=== PATIENT | male | born 1950 | race Caucasian/White ===

== ENCOUNTER 2023-11-07 19:22 | Inpatient (IN) | payer OTHER, SELFPAY ==
[2023-11-07] VITALS (13 sets, daily range): BP systolic 98–133; BP diastolic 66–88; PULSE 111–133
[2023-11-07 13:32] LABS: % Basophils 0.2 % (0-2); % Immature Granulocytes 0.4 % (0-0.5); % Lymphocytes 21.1 % (20.5-51.1); % Monocytes 6.4 % (1.7-9.3); % Neutrophils 71.9 % (42.2-75.2); Absolute Lymphocytes 2.2 10^3/uL (1.2-3.4); Absolute Monocytes 0.7 10^3/uL (0.1-0.6); Absolute Neutrophils 7.6 10^3/uL (1.4-6.5); Hematocrit 26.6 % (39.0-52.0); Hemoglobin 9.4 g/dL (13.0-18.0); Mean Corp Hgb Conc. 35.3 g/dL (33.0-37.0); Mean Corpuscular Hgb 33.1 pg (27.0-31.0); Mean Corpuscular Volume 93.7 fL (80.0-94.0); Mean Platelet Volume 11.5 fL (7.4-10.4); Nucleated Red Blood Cells % 0 % (-); Platelet Count 160 10^3/uL (130-400); Red Blood Cell Count 2.84 10^6/uL (4.70-6.10); Red Cell Dist. Width 12.4 % (11.5-14.5); White Blood Cell Count 10.6 10^3/uL (4.8-10.8)
[2023-11-07 13:46] LABS: ALT (SGPT) 19 U/L (0-50); AST (SGOT) 20 U/L (17-59); Albumin 3.7 g/dl (3.5-5.0); Alkaline Phosphatase 65 U/L (38-126); Blood Urea Nitrogen 48 mg/dl (9-20); Calcium 8.8 mg/dl (8.4-10.2); Carbon Dioxide 20 mmol/L (22-30); Chloride 106 mmol/L (98-107); Estimated Creatinine Clearance 82 ml/min; Glucose 134 mg/dl (70-99); Potassium 4.2 mmol/L (3.5-5.1); Sodium 138 mmol/L (135-145); Total Bilirubin 0.5 mg/dl (0.2-1.3); Total Protein 6.1 g/dl (6.3-8.2); eGFR > 60.00
[2023-11-07 13:55] LABS: Troponin I < 0.012 ng/ml
--- NOTE | 2023-11-07 16:12 | ED.GENMED ---
History of Present Illness
General
Chief Complaint: Fainting/Passed Out
Source: patient, spouse and family (Sister)
Exam Limitations: none
Time Seen by Provider: 11/07/23 13:20
Nursing documentation reviewed up to this point in time: agreed with
Travel History
Have you had any contact with someone who has COVID-19?: No
Do you have any symptoms of coronavirus? Fever > 100 degrees, chills, cough, shortness of breath, sore throat, loss of taste or smell, muscle aches, or headache?: No
History of Present Illness
History of Present Illness:
73-year-old male with a past medical history of CAD, hypertension who presents to the emergency department with his family for evaluation after syncopal event. Patient says that he got up around 2:30 AM to go to the bathroom. He says that he
finished on the toilet and stood up to walk back and passed out. He says that he hit his head and had a laceration on the scalp. He says that he was able to get back up on his own and walk back to bed and went back to sleep. His woke up and
noted that there was blood on the floor and was intermittently waking patient all night to ensure that he was okay. Brought him to the emergency room for assessment this morning. Patient admits that he has been feeling some increased shortness of
breath over the past few days. He denies any chest pain. He denies any palpitations. He denies any headache. Denies any abdominal or flank pain. No recent nausea or vomiting. He denies any other complaints. He is on aspirin and Plavix.
Unsure of last tetanus.
Past History
Past History
ED Past Medical History: CAD and HTN
ED Past Surgical History: Other (Stents)
Social History
Tobacco: Smoker
Alcohol: None
Personal:
Living: with family
Review of Systems
Review of Systems
All Other Systems: ROS reviewed and negative except as documented in HPI and ROS
Constitutional: Denies fever or chills
EENT: Denies sore throat or runny nose
Respiratory: Reports trouble breathing; Denies cough
Cardiac: Reports syncope; Denies chest pain or palpitations
ABD/GI: Denies abdominal pain, nausea, vomiting, bloody stools or black stools
: Denies flank pain
Musculoskeletal: Denies neck pain or back pain
Skin: Reports other (Laceration)
Neurological: Denies dizzy, headache, weakness or numbness
Phy Exam
Physical Exam
Physical Exam:
General: Awake, alert, oriented x3; no acute distress
Head: Normocephalic, 1 cm vertical laceration on the occipital scalp
Eyes: Conjunctiva normal, EOMI, pupils equal round reactive to light bilaterally
Throat: Airway intact, handling secretions
Neck: Trachea midline, supple without meningismus
Lungs: Clear to auscultation bilaterally, no wheezing, rales, rhonchi
Heart: Tachycardia with regular rhythm, no murmurs, gallops, or rubs
Abd: Soft, non distended, nontender
Rectal: Dark brown stool Hemoccult positive
Neuro: Cranial nerves grossly intact, speech fluid, no gross motor or sensory deficits
Extremities: Atraumatic, warm well-perfused
Scores
Heart Failure Risk
Heart Failure Risk Score: Not Applicable
Heart Score for Chest Pain Patients
STEMI patient?: Not applicable
Withdrawal Assessment of Alcohol
Withdrawal Assessment Completed?: Not applicable
Course
Orders/Labs/Results
Orders:
Orders
11/07/23 12:57
EKG [Electrocardiogram (*1)] Urgent
Reason for Study: Chest Pain
EKG- Treatment ONCE
11/07/23 13:10
Cardiac Monitoring- Treatment ONCE
IV Insert/Care/Rem.- Treatment PRN
11/07/23 13:12
Complete Blood Count/With Diff Urgent
Comprehensive Metabolic Panel Urgent
Ferritin Routine
Comment: ADD ON
Folate Routine
Comment: ADD ON
Iron Urgent
Comment: ADD ON
Total Iron Binding Urgent
Comment: ADD ON
Troponin I Urgent
Vitamin B12 Routine
Comment: ADD ON
11/07/23 13:17
CT Cervical Spine W/o Iv Contr Urgent
Comment: neck pain PRIOR to injury
Reason For Exam: syncope, head strike, on plavix, lac present;
CT Head W/o Iv Contrast Urgent
Comment:
Reason For Exam: syncope, head strike, on plavix, lac present
11/07/23 16:07
0.9% Sodium Chloride 500 ml [Nss] 500 ml IV BOLUS
Pantoprazole [Protonix IV] 80 mg IV NOW STA
CR Chest Portable - 1 View Urgent
Comment:
Reason For Exam: sob
Reason Study Needs to be Portable: Unable to Transport
11/07/23 16:09
Tetanus/Diphth/Acelpertussis [Adacel] 0.5 ml IM .ONCE ONE
11/07/23 17:02
Add On- LAB Routine
Tests Added?: iron, ferritin, tibc, folate, vit b12
11/07/23 17:06
Admit/Transfer Patient As Directed
Co-Sign Provider:
Level of Care: Inpatient admission
Assign to:: Telemetry
Physician / Group: Tammy
Diagnosis: GI Bleed
Reason for Telemetry: Syncope
Date to Stop Telemetry: 11/09/23
Time to Stop Telemetry: 11:00
Reason for Hospitalization: GI consult; PPI
Expected length of stay greater than two midnights?: Yes
ELOS- Estimated Length of Stay in days: 3
I certify the patient meets the requirements for IP care: Yes
11/07/23 17:07
Code Status As Directed
Resuscitation Status: Full Code
11/07/23 19:30
H&H Q8H
11/08/23 03:30
H&H Q8H
11/08/23 11:30
H&H Q8H
11/09/23 11:00
DC Protocol for Telemetry ONCE
Abnormal Lab Results
11/07/23
13:12
RBC 2.84 L 10^6/uL
(4.70-6.10)
Hgb 9.4 L g/dL
(13.0-18.0)
Hct 26.6 L %
(39.0-52.0)
MCH 33.1 H pg
(27.0-31.0)
MPV 11.5 H fL
(7.4-10.4)
Absolute Neuts (auto) 7.6 H 10^3/uL
(1.4-6.5)
Absolute Monos (auto) 0.7 H 10^3/uL
(0.1-0.6)
Carbon Dioxide 20 L mmol/L
(22-30)
BUN 48 H mg/dl
(9-20)
Glucose 134 H mg/dl
(70-99)
Total Protein 6.1 L g/dl
(6.3-8.2)
11/07/23 13:12
Vital Signs
Initial and Last Documented VS:
Initial Vital Signs
Temp Pulse Resp Pulse Ox
36.8 C 107 22 99
11/07/23 12:59 11/07/23 12:59 11/07/23 12:59 11/07/23 12:59
Last Documented Vital Signs
Temp Pulse Resp BP Pulse Ox
36.8 C 106 23 120/69 98
11/07/23 12:59 11/07/23 17:30 11/07/23 17:30 11/07/23 17:00 11/07/23 17:30
Procedures
Laceration Closure
Scalp:
Status of Wound: clean
Size of Wound in cm: 1
Description of Wound Edges: sharp
Preparation: cleaned with saline
Revision/Debridement: routine- no revision
Type of Closure: single layer closure
Skin Closure Material: skin ray
Number of sutures: 2
MDM/Problems Addressed
Differential Diagnosis Includes:
Dehydration, vasovagal episode, orthostatic hypotension, electrolyte derangement, cardiac dysrhythmia, anemia, somewhat less likely PE or ACS
MDM/Problems Addressed:
73-year-old male presents after syncopal episode this morning. Has been mildly short of breath over the past few days. He arrives to us tachycardic with otherwise normal vitals. He has a minor scalp laceration. Rest of physical exam as above.
Plan to place an IV check labs including a CBC and a CMP, troponin. Will check CT head and cervical spine. Will check a chest x-ray. Will check an EKG. Monitor closely reassess after the above.
Labs reviewed: CBC shows anemia with hemoglobin of 9.4�this is decreased from prior baseline of 12. Patient denies any black or bloody stools but we did do a Hemoccult which was positive. Certainly this could be contributing to his syncope and his
dyspnea. CMP shows elevated BUN in keeping with suspected diagnosis of an upper GI bleed. His troponin fortunately is negative. CT head and cervical spine negative. Chest x-ray no acute disease. EKG shows sinus rhythm no ischemia, no AV block,
no long QT, no Brugada, no delta wave. Will treat with IV Protonix. Will admit for continued monitoring, serial hemoglobins. Discussed with hospitalist for admission.
Chronic conditions affecting care:
CAD status post stents requiring dual antiplatelet therapy which complicates GI bleed
Acute Exacerbation and/or Progression of Chronic Illness:
Acute on chronic anemia
*Radiology
Radiology exam reviewed: preliminary read by ED provider and radiology read reviewed
*Pulse Oximetry
Patient hypoxic: no
*EKG
Interpreted by ED Provider?: Yes
Heart Rate: 108
Rate: tachycardiac
Rhythm: sinus and sinus tachycardia
[place]: normal axis
Interval: normal interval
QRS Pattern: normal QRS
Ischemia: other (Lateral T wave abnormality is new compared to prior EKG in 2015)
*Critical Care Note
Total Time (30-74mins, 75-104mins- exclusive of procedures): Not Applicable
Data Reviewed
Review of Other/Old Records Reveals: Labs and Records
Source: patient, spouse and family
Further Testing Considered But Not Given:
Considered CTA to rule out PE but patient not having chest pain and normal pulse ox and with anemia with positive Hemoccult which I think more likely accounts for his dyspnea and syncope
Patient Management
Discussion with other providers: Hospitalist (Discussed with hospitalist)
Escalation/DeEscalation of care consider admission/obs:
Admission indicated
ED Attending Note
-
Portions of this chart may have been created with voice recognition software.� Occasional wrong word or��sound alike� substitutions may have occurred due to the inherent limitations of voice recognition software.
Discharge Plan
Departure
Patient Disposition: Admit
Date of Disposition: 11/07/23
Time of Disposition: 16:08
Admit to doctor: Tammy
Presentation/result/management discussed w/ accepting MD/DO: Hospitalist
Discharge Problem:
Syncope, Anemia, GI bleed, Laceration of scalp
Prescriptions:
No Action
atenolol 25 MG tablet
25 mg PO HS
simvastatin 80 MG tablet
80 mg PO HS
clopidogrel 75 mg tablet
75 mg PO HS
Maricel Apple Cider Vinegar
1 tab PO DAILY
aspirin 81 MG tablet,chewable
81 mg PO HS
Referrals:
Fish Michael PA-C [Family Provider] -
Interventions
Interventions:
*Risk Screen - Suicide Last Done: 11/07/23 13:10
*General Assessment Last Done: 11/07/23 16:43
*Neglect/Abuse Screening Last Done: 11/07/23 13:10
ED- Fall Risk Assessment Last Done: 11/07/23 16:43
*ED COVID-19 Vaccine History Last Done: 11/07/23 16:43
ED- Cardiac Assessment Last Done: 11/07/23 14:26
ED- Neurological Assessment Last Done: 11/07/23 14:26
[2023-11-07] MEDS: NSS 500 IV (16:27)
[2023-11-07] MEDS: PROTONIX IV 80 MG IV (16:29)
[2023-11-07] MEDS: ADACEL 0.5 ML IM (16:38)
--- NOTE | 2023-11-07 17:35 | HPS.HSE ---
Addendum entered and electronically signed by Orlando Munoz MD 11/07/23 19:31:
I independently saw and examined the patient on November 07, 2023.
The ROSALIE's note was reviewed and I agree with the note.
Comment:
73 y/o male with past medical history of CAD s/p multiples stent on Plavix and aspirin, upper GI bleed in 2013, hypertension, and hyperlipidemia who presented after passing out earlier today. Patient says he was getting up from the toilet after a
bowel movement when he passed out. He remembers waking up on the floor with blood around him - with the blood being from his head injury - as per him. He did have some chest heaviness afterwards, but denied prior history of syncope. He denies
dizziness, palpitations or shortness of breath.
Work-up in ED revealed Hgb of 9.4 g/dL. He has a history of upper GI bleed in 2013 and says he has not had any episodes of GI bleeding since then. He says he sees a PCP annually, had blood work done recently which he says was normal and denies known
anemia. He denies colonoscopy or endoscopy since 2013. Patient says he started [employer] weight loss program 3 months ago and reported 25 lb weight loss over the past 4 months which he attributes to the new diet. He admits to taking 1 tab of
Naproxen approximately 3 times per week for neck pain. He denies changes in bowel patterns, bloody or dark stool, abdominal pain, fever, chills, and night sweats.
Vital Signs noted
Physical Exam
General:�Not in acute distress
HEENT:�Normocephalic and Moist mucous membranes
Respiratory:�Clear and Non Labored Respirations
Cardiac:�S1/S2, Regular Rhythm and Tachycardia (Slightly)
GI:�Soft and Non Tender. Positive bowel sounds.
Rectal:�Hem Positive (Per ED)
Musculoskeletal:�No Cyanosis and No Edema
Skin:�Warm and Dry
Neuro:�Awake, Alert, Oriented and Nonfocal/grossly intact
Assessment/Plan
Syncope
-EKG with some ST and T wave changes -- patient currently chest pain free
-Check echocardiogram
-Check troponins
-Will consider cardiology consultation
GI Bleed, likely upper in nature
-Patient with prior history of GI Bleed in 2014 secondary to NSAID use
-Consulted GI, recommendations appreciated
-Okay to continue Aspirin for now. Hold Plavix for now.
-Continue Protonix
Anemia, suspect acute blood loss in setting of GI bleed, however no recent Hgb available for comparison
-Attempt to obtain recent blood work from PCP
-Check iron studies
-Trend H&H
-Blood consent obtained and scanned into chart should Hgb drop below 8
-Monitor patient clinically for any melena or hematochezia
Syncope, possibly related to hypovolemia vs vasovagal
-Continue IVFs
-Check monitor on Telemetry
-Monitor orthostatic VS
Coronary Artery Disease s/p Multiple Stents (Last stent over 10 years ago)
-Continue Aspirin
-Will plan to resume Plavix after GI clearance
-Patient should follow-up with his epic ambulatory analyst Dr. Barry at [facility] in [place]
Essential Hypertension
-Continue atenolol with hold parameters
Hyperlipidemia
-Continue atorvastatin in place of patient's usual simvastatin
DVT Prophylaxis: SCDs (no chemical DVT prophylaxis due to suspected GI bleed)
Code Status: Full Code
Original Note:
Family Physician
-
Family Physician: RAKESH MARADIAGA PA-C
Chief Complaint
-
Syncope
History of Present Illness
Patient is a 73 y/o male with PMH of CAD s/p multiples stent on Plavix and aspirin, hypertension, and hyperlipidemia who presented to the ED today following a syncopal episode. Patient says he was getting up from the toilet after a bowel movement
when he passed out. He remembers waking up on the floor with blood around him. He denies prior history of syncope. He denies dizziness, chest pain, palpitations or shortness of breath.
Work-up in ED revealed Hgb of 9.4 g/dL. He has a history of upper GI bleed in 2013 and says he has not had any episodes of GI bleeding since then. He says he sees a PCP annually, had blood work done recently which he says was normal and denies known
anemia. He denies colonoscopy or endoscopy since 2013. Patient says he started [employer] weight loss program 3 months ago. He reports 25 lb weight loss over the past 4 months which he attributes to the new diet. He admits to taking 1 tab of
Naproxen approximately 3 times per week for neck pain. He denies changes in bowel patterns, bloody or dark stool, abdominal pain, fever, chills, and night sweats.
Medical History
Past Medical History
Past Medical History: Reports Other
Additional Past Medical History:
Coronary Artery Disease s/p Multiple Stents
Non-Sustained Supraventricular Tachycardia
Essential Hypertension
Hyperlipidemia
Nephrolithiasis
Past Surgical History: Reports Other
Additional Past Surgical History:
Cardiac Stents
Appendectomy
Hernia Repair
Social History
Tobacco: Non-smoker
Alcohol: Occasional (Patient notes rarely)
Family History
Family History: Not pertinent
Allergies / Home Medications
Allergies reflects when Allergies were last updated in [facility].
Home Medications with original date entered in [facility]
Allergy/Medication List:
Allergies
Allergy/AdvReac Type Severity Reaction Status Date / Time
Iodinated Contrast Media Allergy Hives Verified 01/30/15 11:29
[IV Dye, Iodine Containing]
Home Medications
atenolol 25 mg tablet 25 mg PO HS 01/30/15
simvastatin 80 mg tablet 80 mg PO HS 01/30/15
Maricel Apple Cider Vinegar 1 tab PO DAILY 11/07/23
aspirin 81 mg chewable tablet 81 mg PO HS 11/07/23
clopidogrel 75 mg tablet 75 mg PO HS 11/07/23
Review of Systems
-
A 12 point ROS was completed and negative except as noted: Yes
Constitutional: Reports Weight Loss (20lbs over past few months related to recent diet changes)
Respiratory: Denies Cough or Trouble Breathing
Cardiac: Denies Chest Pain or Palpitations
Physical Exam
Vital Signs
Vital Signs
Temp Pulse Resp BP Pulse Ox
98.2 F 105 26 122/72 99
11/07/23 12:59 11/07/23 16:45 11/07/23 16:45 11/07/23 15:00 11/07/23 16:45
Physical Exam
General: No Apparent Distress and Comfortable
HEENT: NormoCephalic, Anicteric and Moist mucous membranes
Respiratory: Clear and Non Labored Respirations
Cardiac: S1/S2, Regular Rhythm and Tachycardia (Slightly)
GI: Soft and Non Tender
Rectal: Hem Positive (Per ED)
Musculoskeletal: No Clubbing, No Cyanosis and No Edema
Skin: Warm and Dry
Neuro: Awake, Alert, Oriented and Nonfocal/grossly intact
Laboratory Results
-
11/07/23 13:12
Laboratory Results
Total Bilirubin 0.5 mg/dl (0.2-1.3) 11/07/23 13:12
AST 20 U/L (17-59) 11/07/23 13:12
ALT 19 U/L (0-50) 11/07/23 13:12
Alkaline Phosphatase 65 U/L (38-126) 11/07/23 13:12
Troponin I < 0.012 ng/ml 11/07/23 13:12
Data Reviewed
-
Lab Data: Labs Reviewed by me
Old Records: Requested and Reviewed
Impression/Plan
-
GI Bleed, likely upper in nature
-Patient with prior history of GI Bleed in 2014 secondary to NSAID use
-Consult GI
-Continue Protonix
Anemia, suspect acute blood loss in setting of GI bleed, however no recent Hgb available for comparison
-Attempt to obtain recent blood work for PCP
-Check iron studies
-Trend H&H
-Blood consent obtained and scanned into chart should Hgb drop below 8
Syncope, possibly related to hypovolemia vs vasovagal
-Continue IVFs
-Check monitor on Telemetry
-Monitor orthostatic VS
Coronary Artery Disease s/p Multiple Stents (Last stent over 10 years ago)
-Hold Aspirin and Plavix
Essential Hypertension
-Continue atenolol with hold parameters
Hyperlipidemia
-Continue atorvastatin in place of patient's usual simvastatin
DVT proph: SCDs
Code Status: Full Code
[2023-11-07 17:57] LABS: Iron 96 ug/dl (49-181)
[2023-11-07 18:06] LABS: Percent Saturation 29 % (20-50); Total Iron Binding Capacity 321 ug/dl (261-462)
[2023-11-07 18:36] LABS: Ferritin 68.2 ng/ml (17.9-464.0)
[2023-11-07 19:07] LABS: Folate > 20.0 ng/ml (2.76-20); Vitamin B12 288 pg/ml (239-931)
[2023-11-07 19:14] LABS: Hematocrit 23.8 % (39.0-52.0); Hemoglobin 8.4 g/dL (13.0-18.0)
[2023-11-07] MEDS: TYLENOL 1000 MG PO (22:45)
[2023-11-07] MEDS: D5/0.45%NACL 1000 IV (22:53)
[2023-11-07 23:30] LABS: Troponin I 0.087 ng/ml
[2023-11-07] MEDS: LOW STRENGTH ASPIRIN 81 MG PO (23:38)
[2023-11-08] VITALS (21 sets, daily range): BP systolic 98–157; BP diastolic 55–72; BMI 38.8
[2023-11-08 02:13] LABS: Troponin I 0.139 ng/ml
[2023-11-08 06:06] LABS: Hemoglobin 7.3 g/dL (13.0-18.0); Mean Corp Hgb Conc. 34.8 g/dL (33.0-37.0); Mean Corpuscular Hgb 32.7 pg (27.0-31.0); Mean Corpuscular Volume 94.2 fL (80.0-94.0); Mean Platelet Volume 11.5 fL (7.4-10.4); Platelet Count 125 10^3/uL (130-400); Red Blood Cell Count 2.23 10^6/uL (4.70-6.10); Red Cell Dist. Width 12.9 % (11.5-14.5)
[2023-11-08 06:29] LABS: Blood Urea Nitrogen 33 mg/dl (9-20); Calcium 8.1 mg/dl (8.4-10.2); Carbon Dioxide 23 mmol/L (22-30); Chloride 112 mmol/L (98-107); Estimated Creatinine Clearance 82 ml/min; Glucose 126 mg/dl (70-99); Potassium 3.9 mmol/L (3.5-5.1); Sodium 136 mmol/L (135-145); eGFR > 60.00
[2023-11-08] MEDS: PROTONIX IV 40 MG IV (08:45)
[2023-11-08] MEDS: NSS (PRESERVATIVE FREE) 10 ML IV (08:45)
[2023-11-08] MEDS: D5/0.45%NACL IV (10:17)
--- NOTE | 2023-11-08 10:20 | CON.GI ---
Addendum entered and electronically signed by Lyndsey Lockwood DO 11/08/23 14:20:
Patient seen and examined independently of RAMESH. I agree with her note with my additions below
Jorge is a 73-year-old male with CAD status post multiple stents on 325 aspirin and Plavix for at least over a decade with most recent stent over a decade ago who comes in after syncopized and hitting his head after moving his bowels which were
brown. He comes in with a hemoglobin in the nines which drifted down to 7.3. He has not had any overt bleeding. Stools are brown and heme positive. He denies any overt bleeding at home other than the head injury. From GI perspective his
symptoms are vague but he sounds like solid food dysphagia, he has no heartburn, no PPI use. Takes naproxen couple times a week. Denies any heartburn, nausea, vomiting, abdominal pain and his bowels are regular. He states he had labs with his PCP
a month or so ago and was never told he was anemic. History of transfusion decades ago when he said he had hematemesis. No known endoscopy done. He has never had a colonoscopy. He has not followed in the [facility] system and we have no baseline
labs.
On exam he is comfortable, abdomen soft. Denies chest pain or shortness of breath. No significant weight loss or appetite change.
Not on PPI at home
# Anemia -add on iron studies, patient is hemodynamically stable with no overt bleeding
-- Stools are brown
--Getting 1 unit of blood in the setting of his cardiac disease
--Patient on full dose aspirin and Plavix
--Start PPI
--Plan for EGD tomorrow as long as he is optimized from a cardiovascular standpoint
--No prior EGD or colon
Original Note:
Consultation
-
Date/Time Consultation Requested: 11/07/230
Date/Time Consultation Performed: 11/08/23 1042
Requesting Provider: SILVIANO Graf
Performing Provider: Dr. Lockwood/RAMESH Abbasi
Reason for Consultation: OB positive stool, anemia, syncope
Medical History
Chief Complaint / HPI
Chief Complaint: syncope
History of Present Illness:
73-year-old male with past medical history of coronary artery disease status post 5 stents on aspirin and Plavix with history of nonbleeding erosive gastropathy back in 2013, neck pain with recent Naprosyn use, weight loss secondary to dietary
changes who presents to the emergency room after an episode of syncope. The patient states that early Sunday morning approximately 3 AM he felt the need to urinate so he got up out of his bed started walking to the bathroom and he states the
next thing he recalls is he woke up on the floor. He states that he obviously hit his head as he had a laceration with blood. He states he cleaned this up and went back to his bed and went back to sleep. He states that his woke him up around
7 AM as she noticed the blood. And at that point she urged him to go to the emergency room. When he arrived here they noticed that his hemoglobin was 9.4. His stool was brown but occult blood positive. His hemoglobin drifted down to 8.4 and then
7.3. He has not had any bowel movement since arrival. His vital signs have remained stable. He did state that yesterday prior to arrival he did have some substernal chest pressure, he denied any diaphoresis, shortness of breath or radiation of
his chest discomfort to any other part of his body including jaw or arms. He is on aspirin and Plavix daily. His last use of aspirin and Plavix was Sunday evening. He initially denied any use of NSAIDs to me however review of his chart stated
that he was using naproxen approximately 3 times a week for neck discomfort. The patient denies any fevers, chills, nausea, vomiting, melena, hematochezia, dysphagia or odynophagia. He denies any early satiety. His appetite has been good. He
denies any gastroesophageal reflux disease.
Past Medical History
Past Medical History: Arrhythmias (SVT), CAD, HTN, Hypercholesterolemia and Other (kidney stones)
Past Surgical History: Appendectomy, Cardiac (Cardic stents) and Other (hernia repair)
Social History
Tobacco: Non-Smoker
Alcohol: None
Drug: None
Personal:
Living: With Family
Employment: Retired
Family History
Family History: Other (No fam hx of GI malignancy or IBD)
Allergies / Home Medications
Allergy/AdvReac Type Severity Reaction Status Date / Time
Iodinated Contrast Media Allergy Hives Verified 01/30/15 11:29
[IV Dye, Iodine Containing]
Medication Instructions Recorded
atenolol 25 mg tablet 25 mg PO HS 01/30/15
simvastatin 80 mg tablet 80 mg PO HS 01/30/15
Maricel Apple Cider Vinegar 1 tab PO DAILY 11/07/23
aspirin 81 mg chewable tablet 81 mg PO HS 11/07/23
clopidogrel 75 mg tablet 75 mg PO HS 11/07/23
Review of Systems
-
All other systems: A 12 pt ROS was Negative except as stated above in HPI
Vital Signs
Temp Pulse Resp BP Pulse Ox
98.4 F 86 16 115/57 100
11/08/23 10:16 11/08/23 10:00 11/08/23 10:16 11/08/23 09:00 11/08/23 03:00
Physical Exam
Exam
General: No Apparent Distress
HEENT: Anicteric
Respiratory: Clear
Cardiac: Regular Rhythm
GI: Soft, Non Tender, Non Distended and Normal Bowel Sounds
Rectal: Hem Positive (Brown/OB pos per ER)
Musculoskeletal: No Edema
Skin: Warm and Dry
Neuro: AO x 3
Psych: Calm
Results
WBC 6.0 10^3/uL (4.8-10.8) 11/08/23 05:23
Hgb 7.3 g/dL (13.0-18.0) L 11/08/23 05:23
Hct 21.0 % (39.0-52.0) L 11/08/23 05:23
MCV 94.2 fL (80.0-94.0) H 11/08/23 05:23
Plt Count 125 10^3/uL (130-400) L D 11/08/23 05:23
Absolute Neuts (auto) 7.6 10^3/uL (1.4-6.5) H 11/07/23 13:12
Sodium 136 mmol/L (135-145) 11/08/23 05:23
Potassium 3.9 mmol/L (3.5-5.1) 11/08/23 05:23
Chloride 112 mmol/L (98-107) H 11/08/23 05:23
Carbon Dioxide 23 mmol/L (22-30) 11/08/23 05:23
BUN 33 mg/dl (9-20) H 11/08/23 05:23
Creatinine 0.8 mg/dL (0.7-1.3) 11/08/23 05:23
Calcium 8.1 mg/dl (8.4-10.2) L 11/08/23 05:23
Total Bilirubin 0.5 mg/dl (0.2-1.3) 11/07/23 13:12
AST 20 U/L (17-59) 11/07/23 13:12
ALT 19 U/L (0-50) 11/07/23 13:12
Alkaline Phosphatase 65 U/L (38-126) 11/07/23 13:12
Diagnostic Image Results:
CT Cspine:
IMPRESSION:
No acute abnormalities
Multilevel cervical degenerative disc disease with associated reversal of the normal lordotic curvature of the cervical spine as detailed above
Electronically signed by Sumeet Hannah MD 11/07/2023 2:[address] Brain:
IMPRESSION:
There are no acute intracranial abnormalities.
There is mild diffuse cortical atrophy with mild nonspecific white matter changes as described above.
Electronically signed by Sumeet Hannah MD 11/07/2023 2:26 PM
CXR:
IMPRESSION:
No acute cardiopulmonary process.
Electronically signed by Tenzin Duong 11/07/2023 4:23 PM
Prior GI Procedures:
EGD: 03/20/14 ([facility]) � - Nodular mucosa in the esophagus. Biopsied.
�� � � � � � � � � � - Non-bleeding erosive gastropathy. Biopsied.
�� � � � � � � � � � - Normal examined duodenum.
Colonoscopy: '15 years ago, normal'
Assessment / Plan
-
73-year-old male with past medical history of coronary artery disease status post 5 stents on aspirin and Plavix with history of nonbleeding erosive gastropathy back in 2013, neck pain with recent Naprosyn use, weight loss secondary to dietary
changes who presents to the emergency room after an episode of syncope. Found to have anemia and stool positive for occult blood, BUN that is elevated out of proportion with recent Naprosyn use concerning for upper GI bleed. WBC is 6.0, hemoglobin
is 7.3 down from 9.4 on arrival, platelets 125 down from 160, MCV 94.2, MCH 32.7, no coags, sodium 136, potassium 3.9, chloride 112, BUN 33 down from 48 on arrival, creatinine 0.8 same as on arrival, normal LFTs, iron 96, TIBC 321, percent
saturation 29, ferritin 68.2, B12 288, folate greater than 20.0 on arrival troponin was less than 0.012 this has been trending up, 0.087, 0.139, 0.210. EKG performed showing ST and T wave abnormality. Discussed with medicine attending, given
uptrending of troponin, patient's chest discomfort prior to arrival and EKG would prefer patient have cardiac evaluation. Patient is currently chest pain-free and without any signs of distress. Patient also had unwitnessed fall and without any BM
since arrival with 2 gram drop in Hgb since arrival. Discussed with IM attending about abd imaging to r/o other bleeding in addition.
Impression:
Syncope
Anemia
OB positive stool
Elevated troponin with ST changes on EKG
CAD on ASA/Plavix (last dose Plavix 11/06/23)
Hx GIB 2013 (non erosive gastropathy)
Plan:
-Recommend Cardiology consultation (discussed with IM and they are consulting)
-2 large bore IV lines
-Continue Pantoprazole, would change to PPI gtt for now until able to have EGD
-Trend Hgb
-Would keep Hgb >8 given cardiac sx, trop and card hx
-Discussed with IM about CT Abd/Pelvis non con to r/o RP bleed, less likely however given unwitnessed fall at home
-EGD tomorrow if ok with Cardiology unless patient shows signs of active GI bleeding or instability
-Low normal B12, would recommend supplementation
-Further recommendations to follow
-
-
Thank you for consultation and allowing me to participate in the patient's care. Please call the new vehicle sales consultant GI physician during the after hours with any questions or concerns.
--- NOTE | 2023-11-08 10:40 | W.PN.HOSP.TC ---
Today's Communication/Plan
-
EGD tomorrow
Continue to hold Plavix
Assessment / Plan
Assessment / Plan
Physical Exam
General:�Not in acute distress
HEENT:�Normocephalic and Moist mucous membranes
Respiratory:�Clear and Non Labored Respirations
Cardiac:�S1/S2, Regular Rhythm
GI:�Soft and Non Tender. Positive bowel sounds.
Musculoskeletal:�No Cyanosis and No Edema
Skin:�Warm and Dry
Neuro:�Awake, Alert, Oriented and Nonfocal/grossly intact
Assessment/Plan
Syncope
Chest Tightness on Exertion
Elevated troponins - suspected secondary to demand ischemia
-EKG with some ST and T wave changes
-Echocardiogram noted
-Troponins rising significantly
-Consulted cardiology, recommendations appreciated
GI Bleed, likely upper in nature
-Patient with prior history of GI Bleed in 2013 secondary to NSAID use
-Consulted GI, recommendations appreciated
-Okay to continue Aspirin for now. Hold Plavix for now.
-Continue Protonix
-EGD planned for tomorrow
Anemia, suspect acute blood loss in setting of GI bleed, however no recent Hgb available for comparison
-Attempt to obtain recent blood work from PCP
-Iron studies --> not iron deficient
-Trend H&H
-Blood consent obtained and scanned into chart should Hgb drop below 8
-Monitor patient clinically for any melena or hematochezia
-No retroperitoneal hemorrhage on CT scan
-Ordered 1 unit of PRBC given patient's heart disease ad Hgb in the 7's on November 08, 2023 AM
-Transfuse to maintain Hgb 8 or above given patient's heart disease
Syncope, possibly related to hypovolemia vs vasovagal
-Continue IVFs
-Check monitor on Telemetry
-Monitor orthostatic VS
Coronary Artery Disease s/p Multiple Stents (Last stent over 10 years ago)
-Continue Aspirin
-Will plan to resume Plavix after GI clearance/EGD
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 Barry at [facility] in [place]
Essential Hypertension
-Continue atenolol with hold parameters
Hyperlipidemia
-Continue atorvastatin in place of patient's usual simvastatin
DVT Prophylaxis: SCDs (no chemical DVT prophylaxis due to suspected GI bleed)
Code Status: Full Code
Anticipated Discharge: 24 - 48 hours
Subjective/Interval History
-
Date of Service: November 08, 2023
Patient was seen and examined. He reported chest tightness with any kind of exertion, he confirmed that he had 5 stents in the past about 10-15 years ago, and has been kept on Aspirin and Plavix by his carpet installer.
Objective Data
-
Labs:
Laboratory Results
11/08/23 11/08/23 11/08/23
03:30 05:23 11:30
WBC 6.0
Hgb Cancelled 7.3 L Pending
Hct Cancelled 21.0 L Pending
Plt Count 125 L D
Sodium 136
Potassium 3.9
Chloride 112 H
Carbon Dioxide 23
BUN 33 H
Creatinine 0.8
Glucose 126 H
Calcium 8.1 L
11/08/23
19:15
WBC Pending
Hgb Pending
Hct Pending
Plt Count Pending
Sodium
Potassium
Chloride
Carbon Dioxide
BUN
Creatinine
Glucose
Calcium
Vital Signs:
Vital Signs
Temp Pulse Resp BP Pulse Ox
98.4 F 82 18 115/57 100
11/08/23 10:16 11/08/23 10:30 11/08/23 10:30 11/08/23 09:00 11/08/23 03:00
I&O
11/07/23 11/08/23 11/09/23
06:59 06:59 06:59
Intake Total 800 / 800
Output Total 400 / 400 300 / 300
Balance 400 / 400 -300 / -300
[2023-11-08] MEDS: PROTONIX 100 IV ×2 (11:46→21:26)
[2023-11-08 11:48] LABS: Hematocrit 23.4 % (39.0-52.0); Hemoglobin 8.1 g/dL (13.0-18.0)
--- NOTE | 2023-11-08 12:10 | CON.CAR ---
Addendum entered and electronically signed by Donavon Irby MD 11/08/23 14:19:
I saw and examined the patient.
The CHILD WELFARE SPECIALIST's note was reviewed and I agree with the note.
Comment: 73 y/o male with CAD with multiple stents (none recent -15 years ago per patient- records requested), hx GIB, HTN, and dyslipidemia who is here for evaluation of syncope. He was found to be anemia with possible GI bleeding. He also has
elevated troponin with hx of CAD and stenting as above. This is likely demand ischemia in setting of GI bleed.
- Hgb goal ~10
- trend troponin
- OK for GI procedure if necessary
Original Note:
Consultation
Consultation Request
Date/Time Consultation Requested: 11/08/23 1034
Date/Time Consultation Performed: 11/08/23 1145
Requesting Provider: Dr. Munoz
Performing Provider: Carolyn CHANDLER for Dr. Irby
Reason for Consultation: abnormal trop, chest discomfort, EKG
Medical History
-
Chief Complaint: syncope
History of Present Illness:
73 y/o male with CAD with multiple stents (none recent -15 years ago per patient- records requested), hx GIB, HTN, and dyslipidemia who is here for evaluation of syncope. Briefly, since Sunday, he hasn't felt himself. He felt congested and has been
taking NyQuil at night. Yesterday, he felt dizzy when he woke up. Then, overnight, he sat down to have a BM, then stood up and passed out. He hit his head. His significant other looked in the bathroom later and saw blood from hitting his head and
brought him to the ER. Here he is seen to be anemic and have heme + stool. He is on PPI drip and PRBC's are ordered. GI evalauted and plans for egd tomorrow. We are consulted since he has chest tightness with exertion since this AM and abnormal trop
and EKG's. No CP at rest. He is in no distress at the time of my assessment. He follows with Dr. Barry and I have personally requested records. He is on DAPT as OP, but plavix held for bleed. He did have some nausea, but no abdominal pain.
Past Medical History
Past Medical History: CAD, HTN and Hypercholesterolemia
Social History
Tobacco: Non-Smoker
Alcohol: None
Family History
Family History: CAD (dad had OK)
Allergies / Home Medications
Allergy/AdvReac Type Severity Reaction Status Date / Time
Iodinated Contrast Media Allergy Hives Verified 01/30/15 11:29
[IV Dye, Iodine Containing]
Medication Instructions Recorded Confirmed Type
atenolol 25 mg tablet 25 mg PO HS Blood Pressure 01/30/15 11/07/23 History
simvastatin 80 mg tablet 80 mg PO HS High Cholesterol 01/30/15 11/07/23 History
Maricel Apple Cider Vinegar 1 tab PO DAILY Supplement 11/07/23 11/07/23 History
aspirin 81 mg chewable tablet 81 mg PO HS Blood Clot 11/07/23 11/07/23 History
Prevention/Tx
clopidogrel 75 mg tablet 75 mg PO HS Blood Clot 11/07/23 11/07/23 History
Prevention/Tx
Review of Systems
-
History Source: Patient
All other systems: Negative unless noted
Constitutional: Other (congestion)
Cardiac: Chest Pain and Syncope
Abdomen/GI: Nausea
Neurological: Dizzy
Physical Exam
Vital Signs
Temp Pulse Resp BP Pulse Ox
98.4 F 85 21 98/60 100
11/08/23 10:16 11/08/23 12:00 11/08/23 12:00 11/08/23 10:59 11/08/23 03:00
Lab Results
11/08/23 05:23
Troponin I 0.210 ng/ml H* D 11/08/23 05:23
Physical Exam
General: Well Developed, Well Nourished and No Apparent Distress
HEENT: Normocephalic and Anicteric
Respiratory: Clear and Non Labored Respirations
Cardiac: Regular Rhythm
Breast: Deferred by me
GI: Soft, Non Distended and Normal Bowel Sounds
Rectal: Deferred by Provider
Musculoskeletal: No Edema
Skin: Warm and Dry
Neuro: AO x 3
Psych: Calm
Impression / Plan
-
Syncope:
-likely related to GIB, BP's on low end, patient to get blood
-follow telemetry
Acute anemia, GIB:
-severe in that it led to syncope
-GI is consulted and plans for endoscopy tomorrow
-patient to get PRBC's, recommendation to keep hgb around 10 since patient with angina
Abnormal troponin:
-type II OK in setting of acute anemia
-would keep hgb around 10
-echo with normal LV function
-trend to peak
-PRBC's as above
-no CP at rest
CAD with hx stenting:
-on DAPT as OP, no recent stents
-ASA continued, plavix held
-records requested
-continue statin and BB
HTN:
-on low end in ER
-monitor
Data Reviewed
-
EKG: Tracing Personally Visualized and interpreted (SR 87 BPM, ST/T abnormalities)
Radiology: Report Reviewed by me (CXR: No acute cardiopulmonary process.)
CT Scan: Report Reviewed by me (head CT: There are no acute intracranial abnormalities. There is mild diffuse cortical atrophy with mild nonspecific white matter changes as described above.)
Medical Tests (Nuc Med, Echo etc): Report Reviewed by me (Echo 11/08/23: Ejection fraction is 60 to 65%, Mild concentric LVH, Stage I diastolic dysfunction. Mild tricuspid regurgitation. pulmonary artery pressure of 35 mmHg.)
Labs: Labs Reviewed by me
[2023-11-08 14:46] LABS: Iron 71 ug/dl (49-181)
[2023-11-08 15:24] LABS: Ferritin 43.2 ng/ml (17.9-464.0)
[2023-11-08 16:38] LABS: Troponin I 0.246 ng/ml
[2023-11-08] MEDS: TYLENOL 650 MG PO (20:10)
[2023-11-08] MEDS: NSS (PRESERVATIVE FREE) IV (20:23)
--- NOTE | 2023-11-08 20:52 | PTCARENOTE ---
Pt admitted to 338-1 and walked from stretcher to bed x1 w/ steady gait. No c/o dizziness. Pt aaox3, VSS, and c/o 3/10 pain in head. PRN tylenol given (see mar). Protonix gtt going into RW IV. Pt and oriented to room, call alvarado within reach,
and will continue plan of care.
[2023-11-08] MEDS: D5/0.45%NACL 1000 IV (21:08)
[2023-11-08] MEDS: LIPITOR 40 MG PO (21:12)
[2023-11-08] MEDS: LOW STRENGTH ASPIRIN 81 MG PO (21:12)
[2023-11-08] MEDS: TENORMIN 25 MG PO (21:15)
[2023-11-09] VITALS (11 sets, daily range): BP systolic 98–144; BP diastolic 50–83; PULSE 61–70
[2023-11-09 07:24] LABS: PT 16.3 Sec (11.4-14.6)
[2023-11-09 07:29] LABS: Hematocrit 23.7 % (39.0-52.0); Hemoglobin 8.3 g/dL (13.0-18.0); Mean Corpuscular Hgb 32.5 pg (27.0-31.0); Mean Corpuscular Volume 92.9 fL (80.0-94.0); Mean Platelet Volume 11.2 fL (7.4-10.4); Platelet Count 107 10^3/uL (130-400); Red Blood Cell Count 2.55 10^6/uL (4.70-6.10); Red Cell Dist. Width 14.5 % (11.5-14.5); White Blood Cell Count 4.8 10^3/uL (4.8-10.8)
[2023-11-09 07:39] LABS: Troponin I 0.394 ng/ml
[2023-11-09] MEDS: PROTONIX 100 IV (07:56)
[2023-11-09] MEDS: D5/0.45%NACL 1000 IV ×2 (07:57→22:29)
[2023-11-09 08:02] LABS: ALT (SGPT) 15 U/L (0-50); AST (SGOT) 26 U/L (17-59); Alkaline Phosphatase 54 U/L (38-126); Blood Urea Nitrogen 15 mg/dl (9-20); Calcium 8.2 mg/dl (8.4-10.2); Carbon Dioxide 22 mmol/L (22-30); Chloride 111 mmol/L (98-107); Estimated Creatinine Clearance 94 ml/min; Glucose 104 mg/dl (70-99); Potassium 3.9 mmol/L (3.5-5.1); Sodium 136 mmol/L (135-145); Total Bilirubin 0.7 mg/dl (0.2-1.3); Total Protein 5.3 g/dl (6.3-8.2); eGFR > 60.00
--- NOTE | 2023-11-09 08:53 | W.PN.CD ---
Today's Communication / Plan
-
Transfuse pRBC
cont Aspirin
CP free
GI procedure today
Impression / Plan
-
Syncope:
-likely related to GIB, BP's on low end, patient to get blood
-follow telemetry
Acute anemia, GIB:
-severe in that it led to syncope
-GI is consulted and plans for endoscopy tomorrow
-patient to get PRBC's, recommendation to keep hgb around 10 since patient with angina
Abnormal troponin: nonischemic myocardial injury
-type II WA in setting of acute anemia
-chest pain free, recommend one more unit pRBCs given Hgb ~8
-echo with normal LV function
-trend to peak
-PRBC's as above
-no CP at rest
CAD with hx stenting:
-on DAPT as OP, no recent stents
-ASA continued, plavix held, resume once OK from GI perspective
-records requested
-continue statin and BB
HTN:
-on low end in ER
-monitor
Physical Exam
Vital Signs/Labs
Vital Signs
Temp Pulse Resp BP Pulse Ox
97.9 F 64 16 102/58 99
11/09/23 07:00 11/09/23 07:00 11/09/23 07:00 11/09/23 07:00 11/09/23 07:00
11/08/23 11/09/23 11/10/23
06:59 06:59 06:59
Actual Weight 212 lb 11.937 oz 205 lb
11/09/23 06:58
11/09/23 06:58
PT 16.3 Sec (11.4-14.6) H 11/09/23 06:58
INR 1.30 11/09/23 06:58
LAB Results
11/07/23 11/07/23 11/08/23
13:12 22:49 01:39
Troponin I < 0.012 0.087 H* 0.139 H* D
11/08/23 11/08/23 11/08/23
05:23 16:05 21:46
Troponin I 0.210 H* D 0.246 H* 0.450 H* D
11/09/23
06:58
Troponin I 0.394 H*
Physical Exam
Constitutional: No acute distress
Cardiovascular: Rhythm & rate is regular and Pedal edema is absent
Respiratory: Respiratory effort normal and Lungs clear to auscul.
GI: Soft
Neuro/Psych: AO x 3
Data Reviewed
-
Date of Service: November 09, 2023
EKG: Tracing Personally Visualized and interpreted
Echo: Tracing Personally Visualized and interpreted
Labs: Labs Reviewed by me
--- NOTE | 2023-11-09 12:32 | W.PN.UPDATE ---
Update Note
Progress Note Update
EGD done
Few superficial gastric prepyloric ulcers- bx'd
10mm clean based ulcer in duodenal bulb- bx'd edge
Nodularity mid-esophagus- bx'd
REC:
Resume diet
Change protonix to BID PO
Await path
Repeat EGD in 2 months to check healing
--- NOTE | 2023-11-09 15:31 | PN.CDI ---
CDI
- -
CDI:
Physician Documentation Request
Admit Date: 11/07/23 19:22
Dear Doctor Dre,
Please review the following and provide your response in the progress notes.
Clinical Indicators:
Pt admitted with UGIB/ABLA
EGD done which showed per update note,' Few superficial gastric prepyloric ulcers....10mm clean based ulcer in duodenal bulb.'
Clarify which of the following accurately represents the suspected acuity of the documented gastric /duodenal ulcers:
Acute
Acute on Chronic
Chronic
Other
Use of terms such as suspected, likely, concern for, or probable (associated with a specific diagnosis that is being evaluated, monitored, or treated as if it exists) are acceptable and can be coded in the inpatient setting, when documented at the
time of discharge.
Thank you,
Lucie Hancock RN
CDI Specialist
[facility]
Please use your independent medical judgment in providing your response.
--- NOTE | 2023-11-09 15:52 | W.PN.UPDATE ---
Update Note
Progress Note Update
The duodenal and gastric ulcers found on EGD are ACUTE ulcers
--- NOTE | 2023-11-09 19:12 | CM ---
met with patient and his at bedside.[facility] [place] [facility] [address]patient amb I and is I with his adl's.he has no poa,his pcp is [facility] and [facility]he has no dme.he has had a vn in past
but has not been to ip rehab in past.patient is adm with gi bleed.he had an upper endo which showed ulcers.
patient is independent and will have no needs when discharged home.
--- NOTE | 2023-11-09 19:21 | W.PN.HOSP.TC ---
Today's Communication/Plan
-
Check labs tomorrow AM
Plan to resume Plavix tomorrow if okay with GI and cardiology
Continue PPI
Assessment / Plan
Assessment / Plan
Physical Exam
General:�Not in acute distress
HEENT:�Normocephalic and Moist mucous membranes
Respiratory:�Clear and Non Labored Respirations
Cardiac:�S1/S2, Regular Rhythm
GI:�Soft and Non Tender. Positive bowel sounds.
Musculoskeletal:�No Cyanosis and No Edema
Skin:�Warm and Dry
Neuro:�Awake, Alert, Oriented and Nonfocal/grossly intact

UPPER ENDOSCOPY RESULT ON NOVEMBER 09, 2023 PER MAIL ORDER SORTER'S REPORT
Impression: - Nodular mucosa in the esophagus. Biopsied.
- Non-bleeding gastric ulcers with no stigmata of
bleeding. Biopsied.
- Non-bleeding duodenal ulcer with no stigmata of
bleeding. Biopsied.

Assessment/Plan
Syncope
Chest Tightness on Exertion
Elevated troponins - suspected secondary to demand ischemia
Abnormal troponin: nonischemic myocardial injury
-EKG with some ST and T wave changes
-Echocardiogram noted
-Troponins rising significantly
-Consulted cardiology, recommendations appreciated
GI Bleed, likely upper in nature
Acute Gastric Ulcers
Acute Duodenal Ulcer
Nodular mucosa in the esophagus
-Patient with prior history of GI Bleed in 2014 secondary to NSAID use
-Consulted GI, recommendations appreciated
-Okay to continue Aspirin for now. Hold Plavix for now.
-Continue Protonix 40 mg PO BID for 2 months
-Repeat upper endoscopy in 2 months to check healing.
-Avoid Motrin, Ibuprofen, Advil, Aleve, Naprosyn
-EGD completed, findings as above
Anemia, suspect acute blood loss in setting of GI bleed, however no recent Hgb available for comparison
-Iron studies --> not iron deficient
-Trend H&H
-Blood consent obtained and scanned into chart should Hgb drop below 8
-Monitor patient clinically for any melena or hematochezia
-No retroperitoneal hemorrhage on CT scan
-Ordered 1 unit of PRBC given patient's heart disease and Hgb in the 7's on November 08, 2023 AM
-Ordered a 2nd unit of PRBC on November 09, 2023
-Transfusion goal as per cardiology is for Hgb to be 10
Syncope, possibly related to hypovolemia vs vasovagal
-Continue IVFs
-Check monitor on Telemetry
-Monitor orthostatic VS
Coronary Artery Disease s/p Multiple Stents (Last stent over 10 years ago)
-Continue Aspirin
-Will plan to resume Plavix after GI clearance/EGD
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 Barry at [facility] in [place]
Essential Hypertension
-Continue atenolol with hold parameters
Hyperlipidemia
-Continue atorvastatin in place of patient's usual simvastatin
DVT Prophylaxis: SCDs (no chemical DVT prophylaxis due to suspected GI bleed)
Code Status: Full Code
Anticipated Discharge: 24 - 48 hours
Subjective/Interval History
-
Date of Service: November 09, 2023
Patient was seen and examined. He reported that his chest tightness has resolved. He denied any other new symptoms or complaints.
Objective Data
-
Labs:
Laboratory Results
03/15/24
06:58
WBC 4.8
Hgb 8.3 L
Hct 23.7 L
Plt Count 107 L
PT 16.3 H
INR 1.30
Sodium 136
Potassium 3.9
Chloride 111 H
Carbon Dioxide 22
BUN 15
Creatinine 0.7
Glucose 104 H
Calcium 8.2 L
Total Bilirubin 0.7
AST 26
ALT 15
Alkaline Phosphatase 54
Vital Signs:
Vital Signs
Temp Pulse Resp BP Pulse Ox
98 F 77 16 111/58 98
11/09/23 15:00 11/09/23 15:00 11/09/23 15:00 11/09/23 15:00 11/09/23 13:30
I&O
11/08/23 11/09/23 11/10/23
06:59 06:59 06:59
Intake Total 800 / 800 370 / 370 250 / 250
Output Total 400 / 400 750 / 750 1100 / 1100
Balance 400 / 400 -380 / -380 -850 / -850
[2023-11-09] MEDS: PROTONIX 40 MG PO (21:05)
[2023-11-09] MEDS: LIPITOR 40 MG PO (21:05)
[2023-11-09] MEDS: TYLENOL 650 MG PO (21:06)
[2023-11-09] MEDS: TENORMIN PO (21:06)
[2023-11-09] MEDS: LOW STRENGTH ASPIRIN 81 MG PO (21:06)
[2023-11-10 03:45] VITALS: BP 94/47
[2023-11-10 07:00] VITALS: BP 114/48
[2023-11-10 08:07] LABS: Hematocrit 26.4 % (39.0-52.0); Hemoglobin 9.3 g/dL (13.0-18.0); Mean Corp Hgb Conc. 35.2 g/dL (33.0-37.0); Mean Corpuscular Hgb 32.4 pg (27.0-31.0); Red Blood Cell Count 2.87 10^6/uL (4.70-6.10); Red Cell Dist. Width 14.4 % (11.5-14.5); White Blood Cell Count 5.4 10^3/uL (4.8-10.8)
[2023-11-10] MEDS: PROTONIX 40 MG PO (08:16)
[2023-11-10 08:28] LABS: Blood Urea Nitrogen 12 mg/dl (9-20); Calcium 8.4 mg/dl (8.4-10.2); Carbon Dioxide 24 mmol/L (22-30); Chloride 108 mmol/L (98-107); Estimated Creatinine Clearance 82 ml/min; Glucose 115 mg/dl (70-99); Magnesium 2.2 mg/dl (1.6-2.3); Phosphorus 3.9 mg/dl (2.5-4.5); Potassium 3.4 mmol/L (3.5-5.1); Sodium 139 mmol/L (135-145); eGFR > 60.00
[2023-11-10 08:37] LABS: Mean Platelet Volume 10.8 fL (7.4-10.4); Platelet Count 91 10^3/uL (130-400)
--- NOTE | 2023-11-10 10:51 | W.PN.CD ---
Today's Communication / Plan
-
Cont aspirin with resumption of clopidogrel once OK from GI perspective
Hgb stable and CP free
No other new recommendations at this time.
We will sign off; please call with questions/concerns. 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
Impression / Plan
-
Syncope:
-likely related to GIB, BP's on low end, patient to get blood
-follow telemetry
Acute anemia, GIB:
-severe in that it led to syncope
-Multiple ulcers seen on EGD
-Differ resumption of clopidogrel to GI perspective
Abnormal troponin: nonischemic myocardial injury
-type II NV in setting of acute anemia
-chest pain free, recommend one more unit pRBCs given Hgb 9
-echo with normal LV function
-trend to peak
-PRBC's as above
CAD with hx stenting:
-on DAPT as OP, no recent stents
-ASA continued, plavix held, resume once OK from GI perspective
-records requested
-continue statin and BB
HTN:
-on low end in ER
-monitor
Physical Exam
Vital Signs/Labs
Vital Signs
Temp Pulse Resp BP Pulse Ox
98.0 F 62 16 114/48 97
11/10/23 07:00 11/10/23 07:00 11/10/23 07:00 11/10/23 07:00 11/10/23 07:00
11/09/23 11/10/23 11/11/23
06:59 06:59 06:59
Actual Weight 205 lb
11/10/23 07:58
11/10/23 07:58
PT 16.3 Sec (11.4-14.6) H 11/09/23 06:58
INR 1.30 11/09/23 06:58
Magnesium 2.2 mg/dl (1.6-2.3) 11/10/23 07:58
LAB Results
11/07/23 11/07/23 11/08/23
13:12 22:49 01:39
Troponin I < 0.012 0.087 H* 0.139 H* D
11/08/23 11/08/23 11/08/23
05:23 16:05 21:46
Troponin I 0.210 H* D 0.246 H* 0.450 H* D
11/09/23
06:58
Troponin I 0.394 H*
Physical Exam
Constitutional: No acute distress
EENT: Anicteric
Cardiovascular: Rhythm & rate is regular and Pedal edema is absent
Respiratory: Respiratory effort normal and Lungs clear to auscul.
GI: Soft
Neuro/Psych: AO x 3
Data Reviewed
-
Date of Service: November 10, 2023
EKG: Tracing Personally Visualized and interpreted
Labs: Labs Reviewed by me
[2023-11-10 11:00] VITALS: BP 133/70
[2023-11-10] MEDS: D5/0.45%NACL 1000 IV (11:00)
[2023-11-10] MEDS: KCL 40 MEQ PO (12:11)
--- NOTE | 2023-11-10 14:53 | W.PN.HOSP.TC ---
Addendum entered and electronically signed by Orlando Munoz MD 11/14/23 09:12:
Yes, acute blood loss anemia is associated with or exacerbated by Plavix use.�
Original Note:
Today's Communication/Plan
-
Discharge today
Assessment / Plan
Assessment / Plan
Physical Exam
General:�Not in acute distress
HEENT:�Normocephalic and Moist mucous membranes
Respiratory:�Clear and Non Labored Respirations
Cardiac:�S1/S2, Regular Rhythm
GI:�Soft and Non Tender. Positive bowel sounds.
Musculoskeletal:�No Cyanosis and No Edema
Skin:�Warm and Dry
Neuro:�Awake, Alert, Oriented and Nonfocal/grossly intact

Echocardiogram as per windshield repair technician's report:
CONCLUSIONS
Normal LV size and function with no regional wall motion abnormalities.
LV ejection fraction is 60 to 65% by Toussaint's method of discs.
Mild concentric LVH.
Stage I diastolic dysfunction suggestive of abnormal relaxation.
Normal right ventricular size and function.
Mild tricuspid regurgitation.
Estimated pulmonary artery pressure of 35 mmHg. Assuming a right atrial
pressure of 3 mmHg.
No prior study for comparison.

UPPER ENDOSCOPY RESULT ON NOVEMBER 09, 2023 PER CORE PASTER'S REPORT
Impression: - Nodular mucosa in the esophagus. Biopsied.
- Non-bleeding gastric ulcers with no stigmata of
bleeding. Biopsied.
- Non-bleeding duodenal ulcer with no stigmata of
bleeding. Biopsied.

Assessment/Plan
Syncope
Chest Tightness on Exertion
Elevated troponins - suspected secondary to demand ischemia
Abnormal troponin: nonischemic myocardial injury
-EKG with some ST and T wave changes
-Echocardiogram noted
-Troponins rising significantly
-Consulted cardiology, recommendations appreciated
GI Bleed, likely upper in nature
Acute Gastric Ulcers
Acute Duodenal Ulcer
Nodular mucosa in the esophagus
-Patient with prior history of GI Bleed in 2014 secondary to NSAID use
-Consulted GI, recommendations appreciated
-Okay to continue Aspirin=
-Okay to resume Plavix as per GI [place] Text conversation today
-Continue Protonix 40 mg PO BID for 2 months
-Repeat upper endoscopy in 2 months to check healing.
-Avoid Motrin, Ibuprofen, Advil, Aleve, Naprosyn
-EGD completed, findings as above
Anemia, suspect acute blood loss in setting of GI bleed, however no recent Hgb available for comparison
-Iron studies --> not iron deficient
-Trend H&H
-Blood consent obtained and scanned into chart should Hgb drop below 8
-Monitor patient clinically for any melena or hematochezia
-No retroperitoneal hemorrhage on CT scan
-Ordered 1 unit of PRBC given patient's heart disease and Hgb in the 7's on November 08, 2023 AM
-Ordered a 2nd unit of PRBC on November 09, 2023
-Transfusion goal as per cardiology is for Hgb to be 10 -- but cardiology via [place] Text conversation today is okay with discharge given Hgb 9.3 and chest pain-free
Syncope, possibly related to hypovolemia vs vasovagal
-Continue IVFs
-Check monitor on Telemetry
-Monitor orthostatic VS
Coronary Artery Disease s/p Multiple Stents (Last stent over 10 years ago)
-Continue Aspirin
-Okay to resume Plavix after GI clearance/EGD
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 Baryr at [facility] in [place]
Mild Hypokalemia
-Mild
-Will supplement with short-course and small dose on discharge
-Repeat BMP outpatient within 4 to 5 days
Essential Hypertension
-Continue atenolol with hold parameters
Hyperlipidemia
-Continue atorvastatin in place of patient's usual simvastatin
DVT Prophylaxis: SCDs (no chemical DVT prophylaxis due to suspected GI bleed)
Code Status: Full Code
More than 30 minutes spent in discharge including
Final examination of the patient
Summarizing hospital stay
Instructions for continuing care to all relevant caregivers
Preparation of discharge records, prescriptions, and referral forms
Total time spent (in minutes): 39
Anticipated Discharge: Today
Subjective/Interval History
-
Date of Service: November 10, 2023
Patient was seen and examined. He denied any chest tightness and said he had normal bowel movement last night without any blood. He denied any dizziness or any other complaints.
Objective Data
-
Labs:
Laboratory Results
11/10/23
07:58
WBC 5.4
Hgb 9.3 L
Hct 26.4 L
Plt Count 91 L
Sodium 139
Potassium 3.4 L
Chloride 108 H
Carbon Dioxide 24
BUN 12
Creatinine 0.8
Glucose 115 H
Calcium 8.4
Vital Signs:
Vital Signs
Temp Pulse Resp BP Pulse Ox
98.2 F 70 18 133/70 98
11/10/23 11:00 11/10/23 11:00 11/10/23 11:00 11/10/23 11:00 11/10/23 11:00
I&O
11/09/23 11/10/23 11/11/23
06:59 06:59 06:59
Intake Total 370 / 370 1242 / 1242
Output Total 750 / 750 1600 / 1600
Balance -380 / -380 -358 / -358
[2023-11-10 15:00] VITALS: BP 122/71
--- NOTE | 2023-11-10 15:16 | W.PN.GI.CBS2 ---
Today's Communication / Plan
-
EGD showed 1cm DU and several smaller pre-pyloric Kale
Continue protonix BID x 2 months
F/U in office with me in 1 month to set up repeat EGD to check healing
He was taking Naprosyn every 3-4 days- told him to stop
Await path from EGD
OK for d/c
OK to resume plavix
Assessment / Plan
-
73-year-old male with past medical history of coronary artery disease status post 5 stents on aspirin and Plavix with history of nonbleeding erosive gastropathy back in 2013, neck pain with recent Naprosyn use, weight loss secondary to dietary
changes who presents to the emergency room after an episode of syncope. Found to have anemia and stool positive for occult blood, BUN that is elevated out of proportion with recent Naprosyn use concerning for upper GI bleed. WBC is 6.0, hemoglobin
is 7.3 down from 9.4 on arrival, platelets 125 down from 160, MCV 94.2, MCH 32.7, no coags, sodium 136, potassium 3.9, chloride 112, BUN 33 down from 48 on arrival, creatinine 0.8 same as on arrival, normal LFTs, iron 96, TIBC 321, percent
saturation 29, ferritin 68.2, B12 288, folate greater than 20.0 on arrival troponin was less than 0.012 this has been trending up, 0.087, 0.139, 0.210. EKG performed showing ST and T wave abnormality. Discussed with medicine attending, given
uptrending of troponin, patient's chest discomfort prior to arrival and EKG would prefer patient have cardiac evaluation. Patient is currently chest pain-free and without any signs of distress. Patient also had unwitnessed fall and without any BM
since arrival with 2 gram drop in Hgb since arrival. Discussed with IM attending about abd imaging to r/o other bleeding in addition.
Impression:
Syncope
Anemia
OB positive stool
Elevated troponin with ST changes on EKG
CAD on ASA/Plavix (last dose Plavix 11/06/23)
Hx GIB 2014 (non erosive gastropathy)
Subjective
Subjective
Date of Service: November 10, 2023
No complaints. Denies abd pain
Objective
Data Reviewed
Laboratory Data:
Laboratory Results
11/10/23 07:58
11/10/23 07:58
Laboratory Results
PT 16.3 Sec (11.4-14.6) H 11/09/23 06:58
INR 1.30 11/09/23 06:58
Phosphorus 3.9 mg/dl (2.5-4.5) 11/10/23 07:58
Magnesium 2.2 mg/dl (1.6-2.3) 11/10/23 07:58
Total Bilirubin 0.7 mg/dl (0.2-1.3) 11/09/23 06:58
AST 26 U/L (17-59) 11/09/23 06:58
ALT 15 U/L (0-50) 11/09/23 06:58
Alkaline Phosphatase 54 U/L (38-126) 11/09/23 06:58
Vital Signs and I&O:
Vital Signs
Temp Pulse Resp BP Pulse Ox
98.2 F 70 18 133/70 98
11/10/23 11:00 11/10/23 11:00 11/10/23 11:00 11/10/23 11:00 11/10/23 11:00
I&O
11/09/23 11/10/23 11/11/23
06:59 06:59 06:59
Intake Total 370 / 370 1242 / 1242
Output Total 750 / 750 1600 / 1600
Balance -380 / -380 -358 / -358
Physical Exam
Physical Exam
GI: Soft, Non Distended and Non Tender
--- NOTE | 2023-11-10 16:59 | W.DS.TRANS ---
DC Summary - Text Transcriber
-
Discharge Instructions:
Discharge Diagnosis/Procedures Syncope
Chest Tightness on Exertion
Elevated troponins - suspected secondary to
demand ischemia
Abnormal troponin: non-ischemic myocardial
injury
Gastrointestinal Bleed, likely upper in nature
Acute Gastric Ulcers
Acute Duodenal Ulcer
Nodular mucosa in the esophagus
Anemia, suspect acute blood loss in setting of
gastrointestinal bleed, however no recent Hgb
available for comparison
Syncope, possibly related to hypovolemia vs
vasovagal
Coronary Artery Disease status post Multiple
Stents (Last stent over 10 years ago)
Mild Hypokalemia
Essential Hypertension
Hyperlipidemia
Diet As tolerated,Low Fat,Low Cholesterol
Activity As tolerated
Driving Restrictions No driving
Blood Work Please have your complete blood count, basic
metabolic panel and magnesium checked within the
next 2-3 days
Instructions:
Stand-Alone Forms:
Changes to Home Medications: Yes
Discharge Medications:
DC Medications w/original date entered in [employer]
atenolol 25 mg tablet 25 mg PO HS Blood Pressure 01/30/15
simvastatin 80 mg tablet 80 mg PO HS High Cholesterol 01/30/15
[place] Apple Cider Vinegar 1 tab PO DAILY Supplement 11/07/23
aspirin 81 mg chewable tablet 81 mg PO HS Blood Clot Prevention/Tx 11/07/23
clopidogrel 75 mg tablet 75 mg PO HS Blood Clot Prevention/Tx 11/07/23
pantoprazole 40 mg tablet,delayed release 40 mg PO BID #60 tabs 11/10/23
potassium chloride 10 mEq tablet,extended release 10 meq PO DAILY #5 tabs 11/10/23
Home Medication Changes
Pantoprazole and Potassium are new medications.
Pending Results: Yes
Additional Pending Results:
Pathology results from upper endoscopy
Total time spent discharging patient (in min): 39
--- NOTE | 2023-11-12 11:19 | PN.CDI ---
CDI
- -
CDI:
Physician Documentation Request
Admit Date: 11/07/23 19:22
Dear Doctor Na,
Please review the following and provide your response in the progress notes.
Clinical Indicators:
Pt admitted with ABLA / Acute Upper GI bleed EGD done which showed Acute gastric/Acute duodenal ulcers
Pt with HX of CAD on Plavix /ASA were on hold during admit
Please clarify the relationship between these conditions:
Yes, _ABLA __ is related to/associated with/exacerbated by __Plavix use _.
No, ABLA ___ is not related to/associated with/exacerbated by Plavix use ___ but it is due to ___. (Please specify)
Unable to determine
Use of terms such as suspected, likely, concern for, or probable (associated with a specific diagnosis that is being evaluated, monitored, or treated as if it exists) are acceptable and can be coded in the inpatient setting, when documented at the
time of discharge.
Thank you,
Lucie Hancock RN
CDI Specialist
[place] [facility]
Please use your independent medical judgment in providing your response.
--- NOTE | 2023-11-14 09:16 | W.DCSUMMARY ---
Discharge Summary
Discharge Data
Date of Admission: 11/07/23
Date of Discharge: 11/10/23
Total time spent discharging patient (in min): 39
-
Pending Results: Yes
Additional Pending Results:
Upper Endoscopy Biopsy Results
Hospital Course
73 y/o male with past medical history of CAD s/p multiple stents on Plavix and aspirin, upper GI bleed in 2013, hypertension, and hyperlipidemia who presented after passing out earlier on the day of presentation. Patient said that he was getting up
from the toilet after a bowel movement, when he passed out. He remembers waking up on the floor with blood around him - with the blood being from his head injury - as per him. He did have some chest heaviness afterwards, but denied prior history of
syncope. He denies dizziness, palpitations or shortness of breath. Work-up in emergency room revealed hemoglobin of 9.4 g/dL. Patient was noted to have a history of upper gastrointestinal bleeding in 2013 and says he has not had any episodes of
gastrointestinal bleeding since then. He mentioned he sees a primary care provider annually, had blood work done recently which he said was normal and denied any known anemia. He denied colonoscopy or endoscopy since 2013. Patient says he started
[employer] weight loss program 3 months prior and reported 25-pound weight loss over the past 4 months which he attributes to the new diet. He admitted to taking 1 tab of Naproxen approximately 3 times per week for neck pain. Patient was noted to
have an overt bleeding in his bowel movements, but his stool occult blood was heme positive.
Patient's Aspirin was continued, Plavix was held and gastroenterology and cardiology were consulted. Patient was transfused packed red blood cells (patient received a total of 2 units or packed red blood cells during the hospitalization). Cardiology
was consulted in the setting of elevated troponin, history or CAD and his chest pain on exertion, and their impression was that this was demand ischemia in the setting of gastrointestinal bleeding - and they recommended blood transfusions to get
hemoglobin closer to 10. Patient had an upper endoscopy which showed, per truck striker's report: 'Impression: - Nodular mucosa in the esophagus. Biopsied. - Non-bleeding gastric ulcers with no stigmata of bleeding. Biopsied. - Non-bleeding
duodenal ulcer with no stigmata of bleeding. Biopsied.' They recommended Protonix 40 mg orally twice per day for 2 months, avoid Motrin, Ibuprofen, Advil, Aleve, Naprosyn, follow-up on pathology results, and repeat upper endoscopy in 2 months to
check healing.
�� � � � � � � � �
Discharge Plan
-
Patient Disposition: Home (Routine Discharge)
Discharge Diagnosis/Procedures: Syncope
Chest Tightness on Exertion
Elevated troponins - suspected secondary to demand ischemia
Abnormal troponin: non-ischemic myocardial injury
Gastrointestinal Bleed, likely upper in nature
Acute Gastric Ulcers
Acute Duodenal Ulcer
Nodular mucosa in the esophagus
Anemia, suspect acute blood loss in setting of gastrointestinal bleed, however no recent Hgb available for comparison
Syncope, possibly related to hypovolemia vs vasovagal
Coronary Artery Disease status post Multiple Stents (Last stent over 10 years ago)
Mild Hypokalemia
Essential Hypertension
Hyperlipidemia
Condition: Good
Diet: As tolerated, Low Fat and Low Cholesterol
Activity: As tolerated
Driving Restrictions: No driving
Blood Work: Please have your complete blood count, basic metabolic panel and magnesium checked within the next 2-3 days
Referrals:
Suhas Erickson MD [Active] - in one to two weeks
Fish Michael PA-C [Family Provider] - in less than 1 week
Prescriptions:
New
pantoprazole 40 mg Tablet,Delayed Release (Dr/Ec)
40 mg PO BID Qty: 60 1RF
potassium chloride 10 mEq tablet extended release
10 meq PO DAILY Qty: 5 0RF
Continued
atenolol 25 MG tablet
25 mg PO HS
simvastatin 80 MG tablet
80 mg PO HS
clopidogrel 75 mg tablet
75 mg PO HS
[place] Apple Cider Vinegar
1 tab PO DAILY
aspirin 81 MG tablet,chewable
81 mg PO HS
Discharge Orders:
Discharge Patient (As Directed); Ordered 11/10/23
Ordered By: Orlando Munoz
Discharge Date and Time
Discharge Date/Time: 11/10/23 17:25
== END 2023-11-10 17:25 | disposition home or self-care (01) | DRG 377 ==
LOC: 3 WEST ACU 19:22
PROVIDERS: Nurse Practitioner; Nurse Practitioner Gerontology; Physician Assistant Medical; Specialist; ADMITTING PHYSICIAN Hospitalist; CONSULT PHYSICIAN Internal Medicine; CONSULT PHYSICIAN Internal Medicine Cardiovascular Disease; EMERGENCY PHYSICIAN Emergency Medicine; FAMILY PHYSICIAN Physician Assistant Medical
PROC: 30233N1 Transfusion of Nonautologous Red Blood Cells into Peripheral Vein, Percutaneous Approach (ICD-10-PCS; 2023-11-08)
PROC: 0DB98ZX Excision of Duodenum, Via Natural or Artificial Opening Endoscopic, Diagnostic (ICD-10-PCS; 2023-11-09)
PROC: 0DB58ZX Excision of Esophagus, Via Natural or Artificial Opening Endoscopic, Diagnostic (ICD-10-PCS; 2023-11-09)
PROC: 0DB68ZX Excision of Stomach, Via Natural or Artificial Opening Endoscopic, Diagnostic (ICD-10-PCS; 2023-11-09)
DX: K26.0 Acute duodenal ulcer with hemorrhage (principal); I21.A1 Myocardial infarction type 2; D62 Acute posthemorrhagic anemia; I47.10 Supraventricular tachycardia, unspecified; D68.32 Hemorrhagic disorder due to extrinsic circulating anticoagulants; K29.70 Gastritis, unspecified, without bleeding; I25.10 Atherosclerotic heart disease of native coronary artery without angina pectoris; I10 Essential (primary) hypertension; E78.00 Pure hypercholesterolemia, unspecified; K25.0 Acute gastric ulcer with hemorrhage; E87.6 Hypokalemia; F17.200 Nicotine dependence, unspecified, uncomplicated; Z95.5 Presence of coronary angioplasty implant and graft
CPT/HCPCS: 88305; 12001; 70450; 71045; 72125; 74176; 80048; 80053; 82607; 82728; 82746; 83540; 83550; 83735; 84100; 84484; 85014; 85018; 85025; 85027; 85610; 86850; 86900; 86901; 86920; 88342; 90471; 90715; 93005; 93306; 96374; 99285; P9016

== ENCOUNTER → 2024-01-10 06:26 | Day surgery (SDC) | payer OTHER, SELFPAY | LOC: GI 06:26 | PROVIDERS: ATTENDING PHYSICIAN Specialist | DX: K22.89 Other specified disease of esophagus (principal); K31.89 Other diseases of stomach and duodenum; K29.50 Unspecified chronic gastritis without bleeding; K25.4 Chronic or unspecified gastric ulcer with hemorrhage; K26.4 Chronic or unspecified duodenal ulcer with hemorrhage | CPT/HCPCS: 43239; 88305; 88341; 88342 ==